=== PATIENT | female | born 1950 | race Hispanic/Latino ===

== ENCOUNTER 2019-01-15 14:09 | Outpatient (CLI) | payer MEDICARE ==
--- NOTE | 2019-01-17 14:24 | XRay Report ---
FINAL REPORT EXAM: XR SPINE CERVICAL 6+V HISTORY: CERVICAL PAIN TECHNIQUE: AP, lateral , bilateral oblique, swimmer's, and odontoid views of the cervical spine PRIORS: None. FINDINGS: The vertebral body heights and disc spaces are well maintained. The alignment is normal. No prevert ebral soft tissue swelling is seen. The odontoid is intact. Osteophytic bridging anteriorly is noted at C4 through C7. There is mild narrowing of the neural fora men at C5-C6 to the left IMPRESSION: No acute abnormality in the cervical spine.
== END 2019-01-15 14:10 | disposition home or self-care (01) ==
LOC: XRAY 14:09
PROVIDERS: ATTEND Family Medicine
DX: M48.02 Spinal stenosis, cervical region (principal)
CPT/HCPCS: 72052

== ENCOUNTER 2019-09-20 19:07 | Emergency (ER) | payer MEDICARE ==
[2019-09-20 20:04] VITALS: BP 140/55
--- NOTE | 2019-09-21 00:16 | Emergency Department Report ---
ED Dizziness HPI - General Chief Complaint: Dizziness Stated Complaint: FLU/DIZZY Time Seen by Provider: 09/21/19 00:06 Source: patient, family Mode of arrival: Ambulatory Limitations: No Limitations - History of Present Illness Initial Comments: Patient is a 69-year-old female who denies medical history however recently diagnosed with flu 2 weeks ago. Pt advises flu symptoms are resolved except for cough that is nonproductive occasional dizziness. Patient denies chest pain ,no nausea vomiting, no back pain, no diaphoresis. Dizziness was sudden onset that started about 1400 today and resolved at about midnight. There is no weakness, no paralysis, no LOC, no fall or head trauma, no slurred speach. pt presents with family member who advises that patient behavior, and generals status is at baseline for patient. MD Complaint: dizziness Onset/Timin -: hour(s) Timing: sudden onset Description: sense of movement History of Same: Yes History of Trauma: No Severity: moderate Worsens With: movement, other (bending stooping) Associated Symptoms: cough. denies: ataxia, chest pain, confusion, diaphoresis, fever/chills, loss of appetite, malaise, rash, seizure, shortness of breath, syncope, weakness - Related Data Allergies Allergy/AdvReac Type Severity Reaction Status Date / Time No Known Allergies Allergy Unverified 09/20/19 20:00 ED Review of Systems ROS: Stated complaint: FLU/DIZZY Other details as noted in HPI Constitutional: denies: chills, fever Eyes: denies: eye pain, eye discharge, vision change ENT: denies: ear pain, throat pain Respiratory: denies: cough, shortness of breath, wheezing Cardiovascular: denies: chest pain, palpitations Endocrine: no symptoms reported Gastrointestinal: denies: abdominal pain, nausea, vomiting, diarrhea Genitourinary: as per HPI Musculoskeletal: denies: back pain, joint swelling, arthralgia Skin: denies: rash, lesions Neurological: other (dizziness ). denies: headache, weakness, numbness, paresthesias, confusion, abnormal gait, vertigo Psychiatric: denies: anxiety, depression Hematological/Lymphatic: denies: easy bleeding, easy bruising ED Past Medical Hx - Past Medical History Previous Medical History?: No - Surgical History Past Surgical History?: Yes Additional Surgical History: - Social History Smoking Status: Never Smoker Substance Use Type: None ED Physical Exam - General Limitations: No Limitations General appearance: alert, in no apparent distress - Head Head exam: Present: atraumatic, normocephalic, normal inspection - Eye Eye exam: Present: normal appearance, PERRL, EOMI Pupils: Present: normal accommodation - ENT ENT exam: Present: normal orophraynx, mucous membranes moist, TM's normal bilaterally, normal external ear exam - Neck Neck exam: Present: normal inspection, full ROM. Absent: tenderness, meningismus, lymphadenopathy, thyromegaly - Respiratory Respiratory exam: Present: normal lung sounds bilaterally. Absent: respiratory distress, wheezes, rales, rhonchi, stridor, chest wall tenderness, prolonged expiratory - Cardiovascular Cardiovascular Exam: Present: regular rate, normal rhythm, normal heart sounds. Absent: systolic murmur, diastolic murmur, rubs, gallop - GI/Abdominal GI/Abdominal exam: Present: soft, normal bowel sounds. Absent: distended, tenderness, guarding, rebound, rigid, bruit, hernia - Rectal Rectal exam: Present: deferred - Extremities Exam Extremities exam: Present: normal inspection, full ROM, normal capillary refill. Absent: tenderness, pedal edema - Back Exam Back exam: Present: normal inspection, full ROM. Absent: tenderness, CVA te nderness (R), CVA tenderness (L), vertebral tenderness, rash noted - Neurological Exam Neurological exam: Present: alert, oriented X3, CN II-XII intact, normal gait, reflexes normal. Absent: motor sensory deficit - Expanded Neurological Exam Expanded Patient oriented to: Present: person, place, time Speech: Present: fluid speech Cranial nerves: EOM's Intact: Normal, Gag Reflex: Normal, Tongue Deviation: Normal, Nystagmus: Normal, Facial Sensation: Normal Cerebellar function: Finger to Nose: Normal Upper motor neuron: Mehran Neglect: Normal, Pronator Drift: Normal, Sensory Extinction: Normal Motor strength exam: RUE: 5, LUE: 5, RLE: 5, LLE: 5 DTR: bicep (R): 2+, bicep (L): 2+, ankle (R): 2+, ankle (L): 2+ Best Eye Response (Mee): (4) open spontaneously Best Motor Response (Mee): (6) obeys commands Best Verbal Response (Mee): (5) oriented Mee Total: 15 - Psychiatric Psychiatric exam: Present: normal affect, normal mood - Skin Skin exam: Present: warm, dry, intact, normal color. Absent: rash ED Course Vital Signs 09/20/19 09/20/19 19:24 20:00 Temperature 99.0 F 99 F Pulse Rate 83 84 Respiratory 16 16 Rate Blood Pressure 140/55 140/55 O2 Sat by Pulse 99 99 Oximetry ED Medical Decision Making - Medical Decision Making pt eloped prior to completion of evaluation and treatment Critical care attestation.: If time is entered above; I have spent that time in minutes in the direct care of this critically ill patient, excluding procedure time. ED Disposition Clinical Impression: Dizziness Disposition: Z-07 ELOPED Is pt being admited?: No Does the pt Need Aspirin: No Condition: Undetermined Time of Disposition: 02:27
== END 2019-09-21 02:10 | disposition left against medical advice (07) ==
LOC: ED 19:07
DX: R42 Dizziness and giddiness (principal)
CPT/HCPCS: 82962

== ENCOUNTER 2019-09-21 12:43 | Emergency (ER) | payer MEDICARE ==
--- NOTE | 2019-09-21 12:53 | Emergency Department Report ---
Blank Doc - Documentation Documentation: 69-year-old female that presents with dizziness and URI symptoms. Was diagnosed was the flu about 2-3 weeks ago. This initial assessment/diagnostic orders/clinical plan/treatment(s) is/are subject to change based on patient's health status, clinical progression and re-assessment by fellow clinical providers in the ED. Further treatment and workup at subsequent clinical providers discretion. Patient/guardians urged not to elope from the ED as their condition may be serious if not clinically assessed and managed. Initial orders include: 1- Patient sent to [facility] for further evaluation and treatment 2- EKG 3- labs 4- CXR
[2019-09-21 12:54] VITALS: BP 131/62
--- NOTE | 2019-09-21 13:57 | XRay Report ---
CHEST 2 VIEWS INDICATION: Lightheadedness/Dizziness. COMPARISON: None FINDINGS: Support devices: None. Heart: Within normal limits. Lungs/pleura: No acute air space or interstitial disease. No pneumothorax. Additional findings: None. IMPRESSION: No acute findings. Signer Name: Thiago Ponce Jr, MD Signed: 09/21/2019 1:52 PM Workstation Name: [id number]
--- NOTE | 2019-09-21 14:02 | Emergency Department Report ---
HPI - General Chief Complaint: Dizziness Time Seen by Provider: 09/21/19 12:48 - HPI HPI: 69 YO FEMALE COMES TO ER WITH DIZZINESS. SHE IS JUST GETTING OVER CONFIRMED FLU. NO FEVER. NO CHILLS. SHE STATES AT TIMES ROOM SPINS AND OTHER TIMES SHE FEELS "GOOFY." NO FALL OR TRAUMA HAS NOT HAD BEFORE WAS HERE LAST PM BUT LWBS DUE TO WAIT NO HEADACHE PCP [facility] NONE RX NONE [facility] ED Past Medical Hx - Past Medical History Previous Medical History?: No - Surgical History Past Surgical History?: Yes Additional Surgical History: - Family History Family history: no significant - Social History Smoking Status: Never Smoker Substance Use Type: Alcohol - Medications Home Medications: Home Medications Medication Instructions Recorded Confirmed Last Taken Type Nitrofurantoin [place]/M-Cryst 100 mg PO Q12HR #10 capsule 09/21/19 Unknown Rx [Macrobid CAP] ED Review of Systems ROS: Stated complaint: JUST LEFT LAST NIGHT/DIZZINESS Other details as noted in HPI Comment: All other systems reviewed and negative Physical Exam - Physical Exam Vital Signs: Vital Signs 09/21/19 12:50 Temperature 97.8 F Pulse Rate 82 Respiratory 18 Rate Blood Pressure 131/62 O2 Sat by Pulse 99 Oximetry Physical Exam: ALERT AND ORIENTED NO FOCAL NEURO DEF S1S2 LUNGS CTA ABD SNT NO CVA TENDERNESS ED Course Vital Signs 09/21/19 12:50 Temperature 97.8 F Pulse Rate 82 Respiratory 18 Rate Blood Pressure 131/62 O2 Sat by Pulse 99 Oximetry ED Medical Decision Making - Lab Data Result diagrams: 09/21/19 14:15 09/21/19 14:15 - EKG Data EKG shows normal: sinus rhythm Rate: normal - EKG Data When compared to previous EKG there are: no significant change Interpretation: no acute changes - Radiology Data Radiology results: report reviewed, image reviewed - Medical Decision Making Lab Results 09/21/19 09/21/19 09/21/19 Range/Units 14:15 14:15 14:15 WBC 9.4 (4.5-11.0) K/mm3 RBC 3.94 (3.65-5.03) M/mm3 Hgb 13.0 (10.1-14.3) gm/dl Hct 37.4 (30.3-42.9) % MCV 95 (79-97) fl MCH 33 H (28-32) pg MCHC 35 H (30-34) % RDW 12.8 L (13.2-15.2) % Plt Count 295 (140-440) K/mm3 Lymph % (Auto) 15.6 (13.4-35.0) % [place] % (Auto) 7.8 H (0.0-7.3) % Eos % (Auto) 2.2 (0.0-4.3) % Baso % (Auto) 1.1 (0.0-1.8) % Lymph # 1.5 (1.2-5.4) K/mm3 [place] # 0.7 (0.0-0.8) K/mm3 Eos # 0.2 (0.0-0.4) K/mm3 Baso # 0.1 (0.0-0.1) K/mm3 Seg Neutrophils % 73.3 H (40.0-70.0) % Seg Neutrophils # 6.9 (1.8-7.7) K/mm3 Sodium 141 (137-145) mmol/L Potassium 4.1 (3.6-5.0) mmol/L Chloride 100.6 (98-107) mmol/L Carbon Dioxide 25 (22-30) mmol/L Anion Gap 20 mmol/L BUN 11 (7-17) mg/dL Creatinine 0.5 L (0.7-1.2) mg/dL Estimated GFR > 60 ml/min BUN/Creatinine Ratio 22 % Glucose 93 (65-100) mg/dL Calcium 9.5 (8.4-10.2) mg/dL Total Bilirubin 0.40 (0.1-1.2) mg/dL Direct Bilirubin < 0.2 (0-0.2) mg/dL Indirect Bilirubin 0.2 mg/dL AST 19 (5-40) units/L ALT 14 (7-56) units/L Alkaline Phosphatase 70 (35-129) units/L Troponin T (0.00-0.029) ng/mL Total Protein 7.8 (6.3-8.2) g/dL Albumin 4.4 (3.9-5) g/dL Albumin/Globulin Ratio 1.3 % Urine Color (Yellow) Urine Turbidity (Clear) Urine pH (5.0-7.0) Ur Specific [place] (1.003-1.030) Urine Protein (Negative) mg/dL Urine Glucose (UA) (Negative) mg/dL Urine Ketones (Negative) mg/dL Urine Blood (Negative) Urine Nitrite (Negative) Urine Bilirubin (Negative) Urine Urobilinogen (<2.0) mg/dL Ur Leukocyte Esterase (Negative) Urine WBC (Auto) (0.0-6.0) /HPF Urine RBC (Auto) (0.0-6.0) /HPF U Epithel Cells (Auto) (0-13.0) /HPF Urine Mucus /HPF 09/21/19 09/21/19 Range/Units 14:15 15:45 WBC (4.5-11.0) K/mm3 RBC (3.65-5.03) M/mm3 Hgb (10.1-14.3) gm/dl Hct (30.3-42.9) % MCV (79-97) fl MCH (28-32) pg MCHC (30-34) % RDW (13.2-15.2) % Plt Count (140-440) K/mm3 Lymph % (Auto) (13.4-35.0) % [place] % (Auto) (0.0-7.3) % Eos % (Auto) (0.0-4.3) % Baso % (Auto) (0.0-1.8) % Lymph # (1.2-5.4) K/mm3 [place] # (0.0-0.8) K/mm3 Eos # (0.0-0.4) K/mm3 Baso # (0.0-0.1) K/mm3 Seg Neutrophils % (40.0-70.0) % Seg Neutrophils # (1.8-7.7) K/mm3 Sodium (137-145) mmol/L Potassium (3.6-5.0) mmol/L Chloride (98-107) mmol/L Carbon Dioxide (22-30) mmol/L Anion Gap mmol/L BUN (7-17) mg/dL Creatinine (0.7-1.2) mg/dL Estimated GFR ml/min BUN/Creatinine Ratio % Glucose (65-100) mg/dL Calcium (8.4-10.2) mg/dL Total Bilirubin (0.1-1.2) mg/dL Direct Bilirubin (0-0.2) mg/dL Indirect Bilirubin mg/dL AST (5-40) units/L ALT (7-56) units/L Alkaline Phosphatase (35-129) units/L Troponin T < 0.010 (0.00-0.029) ng/mL Total Protein (6.3-8.2) g/dL Albumin (3.9-5) g/dL Albumin/Globulin Ratio % Urine Color Yellow (Yellow) Urine Turbidity Slightly-cloudy (Clear) Urine pH 5.0 (5.0-7.0) Ur Specific [place] 1.010 (1.003-1.030) Urine Protein <15 mg/dl (Negative) mg/dL Urine Glucose (UA) Neg (Negative) mg/dL Urine Ketones Neg (Negative) mg/dL Urine Blood Sm (Negative) Urine Nitrite Neg (Negative) Urine Bilirubin Neg (Negative) Urine Urobilinogen < 2.0 (<2.0) mg/dL Ur Leukocyte Esterase Mod (Negative) Urine WBC (Auto) 71.0 H (0.0-6.0) /HPF Urine RBC (Auto) 6.0 (0.0-6.0) /HPF U Epithel Cells (Auto) 3.0 (0-13.0) /HPF Urine Mucus Few /HPF Vital Signs 09/21/19 12:50 Temperature 97.8 F Pulse Rate 82 Respiratory 18 Rate Blood Pressure 131/62 O2 Sat by Pulse 99 Oximetry LABS NOTED 12 LEAD NOTED CHEST XRAY NOTED UA NOTED GIVEN ROCEPHIN IM DC HOME WITH DC PLAN OF CARE AND PCP FOLLOW UP. FAMILY VERBALIZES UNDERSTANDING OF PLAN OF CARE. - Differential Diagnosis RO PNA/INFECTION Critical care attestation.: If time is entered above; I have spent that time in minutes in the direct care of this critically ill patient, excluding procedure time. ED Disposition Clinical Impression: UTI (urinary tract infection) Disposition: DC-01 TO HOME OR SELFCARE Is pt being admited?: No Does the pt Need Aspirin: No Condition: Stable Instructions: Urinary Tract Infection in Women (ED) Additional Instructions: MEDS ORDERED TODAY MOTRIN OR TYLENOL FOR PAIN DRINK A LOT OF WATER FOLLOW UP WITH PCP TO BE SURE THIS GOES AWAY REFERRAL BELOW Prescriptions: Nitrofurantoin [place]/M-Cryst [Macrobid CAP] 100 mg PO Q12HR #10 capsule Referrals: [facility] [Outside] - 3-5 Days Time of Disposition: 16:26
[2019-09-21 14:48] LABS: Basophils # (Auto) 0.1 K/mm3 (0.0-0.1); Basophils % (Auto) 1.1 % (0.0-1.8); Eosinophils # (Auto) 0.2 K/mm3 (0.0-0.4); Eosinophils % (Auto) 2.2 % (0.0-4.3); Hematocrit 37.4 % (30.3-42.9); Lymphocytes # (Auto) 1.5 K/mm3 (1.2-5.4); Lymphocytes % (Auto) 15.6 % (13.4-35.0); Mean Corpuscular HGB Conc 35 % (30-34); Mean Corpuscular Volume 95 fl (79-97); Monocytes # (Auto) 0.7 K/mm3 (0.0-0.8); Monocytes % (Auto) 7.8 % (0.0-7.3); Platelet Count 295 K/mm3 (140-440); Red Blood Count 3.94 M/mm3 (3.65-5.03); Red Cell Distribution Width 12.8 % (13.2-15.2)
[2019-09-21 14:53] LABS: BUN/Creatinine Ratio 22; Blood Urea Nitrogen 11 mg/dL (7-17); Calcium 9.5 mg/dL (8.4-10.2); Hemolysis Index 30
[2019-09-21 14:57] LABS: Alanine Aminotransferase 14 units/L (7-56); Albumin 4.4 g/dL (3.9-5)
[2019-09-21 15:01] LABS: Bilirubin,Direct < 0.2 mg/dL (0-0.2)
--- NOTE | 2019-09-21 15:17 | Cat Scan Report ---
CT HEAD WITHOUT CONTRAST HISTORY: Dizziness, syncope. TECHNIQUE: Axial imaging performed from the skull apex through the skull base without the use of con trast. All CT scans at this location are performed using CT dose reduction for ALARA by means of aut omated exposure control. COMPARISON: None FINDINGS: Parenchyma: No acute intracranial hemorrhage or parenchymal abnormality. Moderate hypoattenuation th roughout the white matter is noted and consistent with chronic microvascular ischemic disease. No enedina dence for hemorrhage, mass, chronic infarct or extra-axial fluid collection. Ventricles: There is mild diffuse brain atrophy with commensurate ventricular enlargement which is l ikely age appropriate. Soft tissues: Soft tissues including the orbits appear normal. Bones: No acute osseous abnormality. Sinuses: Sinuses and mastoid air cells are clear. IMPRESSION: No acute abnormality. Signer Name: Thiago Ponce Jr, MD Signed: 09/21/2019 3:12 PM Workstation Name: [id number]
[2019-09-21] MEDS ORDERED: ANTIVERT PO ONE (15:20)
[2019-09-21 16:17] LABS: Bilirubin,Urine NEG (Negative); Blood,Urine SM (Negative); Color,Urine Yellow (Yellow); Mucus,Urine FEW /HPF; Protein,Urine <15 mg/dL mg/dL (Negative); Urobilinogen,Urine < 2.0 mg/dL (<2.0)
[2019-09-21] MEDS ORDERED: ROCEPHIN IM ONE (16:25)
[2019-09-21] MEDS ORDERED: XYLOCAINE 1% MPF 5 mL INFILTRATI ONE (16:25)
[2019-09-21] MEDS ORDERED: IBUPROFEN PO ONE (16:37)
== END 2019-09-21 18:02 | disposition home or self-care (01) ==
LOC: ED 12:43
DX: N39.0 Urinary tract infection, site not specified (principal); Z79.899 Other long term (current) drug therapy
CPT/HCPCS: 36415; 70450; 71046; 80048; 80076; 81001; 84484; 85025; 87086; 93005; 93010; 96372; 99284; J0696